=== PATIENT | female | born 1985 | race Caucasian/White ===

== ENCOUNTER 2018-11-05 08:00 | Outpatient (CLI) | payer OTHER ==
[2018-11-05 21:06] LABS: TRICHOMONAS VAGINALIS DNA NEGATIVE (NEGATIVE)
== END 2018-11-05 23:59 | disposition home or self-care (01) ==
LOC: LAB.R 08:00
PROVIDERS: ATTEND Obstetrics & Gynecology
DX: Z11.3 Encounter for screening for infections with a predominantly sexual mode of transmission (principal)
CPT/HCPCS: 87491; 87591; 87661

== ENCOUNTER 2018-11-06 08:00 | Outpatient (CLI) | payer OTHER | END 2018-11-06 23:59 | disposition home or self-care (01) | LOC: LAB.R 08:00 | PROVIDERS: ATTEND Obstetrics & Gynecology | DX: L73.9 Follicular disorder, unspecified (principal) | CPT/HCPCS: 87070; 87205 ==

== ENCOUNTER 2019-02-26 12:59 | Emergency (ER) | payer MEDICAID, OTHER ==
[2019-02-26 13:10] VITALS: BP 102/58
[2019-02-26 13:36] LABS: BASOPHILS # (AUTO) 0.1 10^3/uL (0.0-0.1); EOSINOPHILS # (AUTO) 0.1 10^3/uL (0.0-0.7); EOSINOPHILS % (AUTO) 0.5 %; LYMPHOCYTES # (AUTO) 1.8 10^3/uL (1.5-3.5); MEAN CORPUSCULAR HEMOGLOBIN 29.4 pg (27.0-31.0); MEAN CORPUSCULAR HGB CONC 33.4 g/dL (32.0-36.0); MEAN PLATELET VOLUME 12.5 fL (7.9-10.8); MONOCYTES # (AUTO) 0.9 10^3/uL (0.0-1.0); MONOCYTES % (AUTO) 6.5 %; NEUTROPHILS # (AUTO) 10.6 10^3/uL (1.5-6.6); NEUTROPHILS % (AUTO) 78.4 %; PLT - PLATELET COUNT 261 10^3/uL (130-450); RED BLOOD COUNT 4.76 10^6/uL (4.20-5.40); RED CELL DISTRIBUTION WIDTH 12.9 % (12.0-15.0); WHITE BLOOD COUNT 13.5 x10^3/uL (4.8-10.8)
--- NOTE | 2019-02-26 13:41 | XRAY Report ---
Reason: chest pain Procedure Date: 02/26/2019 Accession Number: [id number] / [id number] Procedure: XR - Chest 1 View X-Ray CPT Code: 26980 Final Report FULL RESULT: EXAM: CHEST RADIOGRAPHY EXAM DATE: 02/26/2019 01:14 PM. CLINICAL HISTORY: Chest pain. COMPARISON: None. TECHNIQUE: 1 view. FINDINGS: Lungs/Pleura: No focal opacities evident. No pleural effusion. No pneumothorax. Mediastinum: Heart size is normal. Trachea is midline. Other: None. IMPRESSION: Negative for an acute cardiopulmonary abnormality. RADIA
[2019-02-26 14:08] LABS: ALBUMIN 4.6 g/dL (3.2-5.5); ALBUMIN/GLOBULIN RATIO 1.6 (1.0-2.2); BILIRUBIN,TOTAL 1.1 mg/dL (0.2-1.0); CALCIUM 9.5 mg/dL (8.5-10.3); TOTAL PROTEIN 7.4 g/dL (6.7-8.2)
--- NOTE | 2019-02-26 14:50 | ED Physician Documentation ---
PD HPI CHEST PAIN - Stated complaint Stated Complaint: CHEST PX - Chief complaint Chief Complaint: Cardiac - History obtained from History obtained from: Patient - History of Present Illness Timing - onset: Today (Previously healthy 33-year-old woman was sitting in her desk at work around 1130 today when she started to feel some substernal chest pain rating to the back and neck. It is mostly gone at this point just some residual chest pressure. She was short of breath with it. She is never had this before. No recent travel, calf pain or pedal edema.) Review of Systems Constitutional: denies: Fever, Chills Throat: denies: Dental pain / toothache, Sore throat Cardiac: denies: Palpitations, Pedal edema, Calf pain Respiratory: denies: Cough, Hemoptysis, Wheezing GI: denies: Abdominal Pain, Nausea, Vomiting PD PAST MEDICAL HISTORY - Allergies Allergies/Adverse Reactions: Allergies Allergy/AdvReac Type Severity Reaction Status Date / Time acetaminophen [From Percocet] Allergy Emesis Verified 02/26/19 13:08 oxycodone [From Percocet] Allergy Emesis Verified 02/26/19 13:08 PD ED PE NORMAL - Vitals Vital signs reviewed: Yes - General General: Alert and oriented X 3, No acute distress - HEENT HEENT: PERRL, EOMI - Neck Neck: Supple, no meningeal sign, No bony TTP - Cardiac Cardiac: RRR, No murmur - Respiratory Respiratory: No respiratory distress, Clear bilaterally - Abdomen Abdomen: Non tender - Back Back: No CVA TTP, No spinal TTP - Derm Derm: Normal color, Warm and dry - Extremities Extremities: No edema, No calf tenderness / cord - Neuro Neuro: Alert and oriented X 3, Normal speech Results - Vitals Vitals: Vital Signs - 24 hr 02/26/19 13:04 Temperature 37 C Heart Rate 65 Respiratory 18 Rate Blood Pressure 102/58 L O2 Saturation 100 Oxygen O2 Source Room air - EKG (time done) 1329 Rate: Rate (enter#) (61) Rhythm: NSR [place]: Normal Intervals: Other (IVCD) QRS: Normal Ischemia: Normal ST segments. No: ST elevation c/w ischemia, ST depression Computer interpretation: Agree with computer - Labs Labs: Laboratory Tests 02/26/19 02/26/19 02/26/19 13:26 13:26 13:26 WBC 13.5 H RBC 4.76 Hgb 14.0 Hct 41.9 MCV 88.0 MCH 29.4 MCHC 33.4 RDW 12.9 Plt Count 261 MPV 12.5 H Neut # (Auto) 10.6 H Lymph # (Auto) 1.8 [place] # (Auto) 0.9 Eos # (Auto) 0.1 Baso # (Auto) 0.1 Absolute Nucleated RBC 0.00 Nucleated RBC % 0.0 Sodium 138 Potassium 3.0 L Chloride 104 Carbon Dioxide 23 Anion Gap 11.0 BUN 15 Creatinine 1.0 Estimated GFR (MDRD) 64 L Glucose 108 H Calcium 9.5 Total Bilirubin 1.1 H AST 24 ALT 19 Alkaline Phosphatase 61 Troponin I High Sens < 2.3 L Total Protein 7.4 Albumin 4.6 Globulin 2.8 Albumin/Globulin Ratio 1.6 Lipase 55 H - Rads (name of study) 1v chest Radiology: EMP read contemporaneously (NAD) PD MEDICAL DECISION MAKING - ED course ED course: 33-year-old woman with a resolved atypical chest pain with a nonischemic EKG. Initial labs make me wonder if it might of been an attack of biliary colic but she has no right upper quadrant tenderness at this juncture. Dissection is very unlikely given her young age, lack of elevated blood pressure, equal radial pulses, normal mediastinum on x-ray. Heart score is 0 I considered pulmonary embolism in this patient. Clinically the pretest probability of pulmonary embolism is less than 15%. I applied to the PERC rules as follows: The patient's age is under 50, heart rate less than 100, oxygen saturation greater than 94%, the patient does not have a history of DVT or PE. Patient has no recent trauma or surgery. The patient has no hemoptysis. The patient is not on exogenous estrogens. The patient does not have clinical signs suggesting DVT. As such the patient ruled out for pulmonary embolism by PERC criteria. Departure - Departure Disposition: 01 Home, Self Care Clinical Impression: Atypical chest pain Condition: Good Record reviewed to determine appropriate education?: Yes Instructions: ED Chest Pain Atypical Unkn Cause Comments: Call your doctor to arrange a follow-up appointment, make the next available appointment. In the interim, return anytime if worse or if new symptoms develop.
== END 2019-02-26 15:53 | disposition home or self-care (01) ==
LOC: ED 12:59
DX: R07.89 Other chest pain (principal)
CPT/HCPCS: 36415; 71045; 80053; 83690; 84484; 85025; 93005; 99283; 99284